=== PATIENT | female | born 1960 | race Caucasian/White ===

== ENCOUNTER 2016-11-21 06:15 | Inpatient (IN) | payer OTHER ==
[2016-11-21] VITALS (14 sets, daily range): BP systolic 150–209; BP diastolic 76–111; PULSE 62–96; RESP 16–28; O2SAT 88–98
[~2016-11-21] VITALS: Ht 170.2 cm; Wt 68.0 kg
--- NOTE | 2016-11-21 06:31 | ED.REPORT ---
HPI-Dyspnea / Wheezing Date of Service Nov 21, 2016 ED Provider: Troy Cortes MD A 56 year old female with a history of hepatitis C, TN , Type II IDDM, HTN, and heroin abuse presents to the ED via EMS from [facility] rehab facility complaining of SOB onset 0400 today. She woke up and felt like she could not breathe, describing "being able to pull breath in but receiving no O2. " Her rehab center recorded O2 sat at 88, EMS recorded it at 96 and it is recorded at 97 in the ED. Associated symptoms include recent swelling in hands, wheezing earlier this morning, and a productive cough with colorless and watery sputum. She denies any chest pain, fever, nausea, or vomiting. She last used heroin on 10/21/2016 and has been receiving treatment at rehab facility for the last two days. She reports consuming alcohol 3 weeks ago. She does smoke cigarettes. In May, she had a TN and was seen at [facility] in [place] where she experienced chest pain and headache. Nursing Notes Stated Complaint: SOB Chief Complaint: Respiratory Complaints Nursing Notes Reviewed: Yes Allergies: Coded Allergies: Penicillins (Verified Allergy, Unknown, 11/21/16) Sulfa (Sulfonamide Antibiotics) (Verified Allergy, Unknown, 11/21/16) iodine (Verified Allergy, Unknown, 11/21/16) Scheduled Clonidine (Clonidine) 0.2 Mg Tablet 0.2 MG PO BID Gabapentin (Gabapentin) 600 Mg Tablet 600 MG PO BID Insulin Glargine (Lantus U100 Insulin Vial) 100 Unit/Ml Vial 15 UNIT SUBQ MORNING Insulin Glargine (Lantus U100 Insulin Vial) 100 Unit/Ml Vial 10 UNIT SUBQ HS Losartan Potassium (Losartan Potassium) 25 Mg Tablet 25 MG PO BID Meloxicam (Meloxicam) 15 Mg Tablet 15 MG PO DAILY Propranolol HCl (Propranolol HCl) 10 Mg Tablet 10 MG PO BID General Time Seen by MD: 06:25 Chief Complaint Shortness of breath Hx Obtained From: Patient, EMS Arrived By: Ambulance Sudden in Onset?: Yes Onset Occurred: 1 - 4 hours ago Symptom Duration: Since onset Recent Healthcare: No recent doctor visit Similar Sx Previous: No Past Medical History Past Medical History Myocardial Infarction in 2015. Was hospitalized. Hepatitis C. Reports: Diabetes mellitus (Type 2, Insulin Dependent), Hypertension Past Surgical History bladder sling Reports: Cholecystectomy, Tonsillectomy Smoking History Current Every Day Smoker Social History polysubstance abuse Alcohol Use: In recovery (Last consumption was 3 weeks ago.) Drug Use: IV drugs (Heroin) Ambulatory Status Independent Review of Systems Basic Review of Systems GI: No nausea, No vomiting Constitutional: Denies: Fever Respiratory: Reports: Prod cough, clear (watery), Shortness of breath, Wheezing (This morning) Cardiovascular: Denies: Chest pain Skin: Reports Swelling (Hands) Complete sys rev & neg: except as marked. Physical Exam Initial Vital Signs Vital Signs (First) Date Time Temp Pulse Resp B/P Pulse Ox O2 Delivery O2 Flow Rate FiO2 11/21/16 06:28 36.6 67 20 167/86 96 Room Air Initial VS: Reviewed General/Constitutional: Awake, Alert, No acute distress speaking in full sentences Neck: Atraumatic, Supple, Full range of motion Respiratory / Chest: Atraumatic, Breath sounds NL, Breath sounds = bilat, No respiratory distress, No wheezing Cardiovascular: Heart rate NL, Regular rhythm, Heart sounds NL, No gallop, No murmurs, No rubs ENT: Atraumatic, Airway patent, Mucous membranes moist Abdomen: Atraumatic, No guarding, No rebound Back: Atraumatic, Full range of motion Lower Extremity / Pelvis / MS: Atraumatic, Full range of motion Skin: Atraumatic, Color NL, No rash, Warm, Dry Neurologic: Oriented X3, Speech NL, No motor deficits, No sensory deficits Head / Eyes: Atraumatic, Normocephalic, PERRL, EOMI Upper Extremity / MS: Atraumatic, Full range of motion Psychiatric: Affect NL, Mood NL Interpretation & Diagnostics Interpretation & Diagnostics: Field EKG: normal sinus rhythm with a rate of 65 Q waves in V1 lateral ST depression Lab Results Interpretation Result Diagram: 11/21/16 0645 11/21/16 0645 Test 11/21/16 06:45 11/21/16 08:57 White Blood Count 8.6th/mm3 (3.8-10.1) Red Blood Count 4.09mil/mm3 (3.90-5.20) Hemoglobin 12.5g/dL (12.0-15.6) Hematocrit 36.3% (35.0-46.0) Mean Corpuscular Volume 88.8fL (81-100) Mean Corpuscular Hemoglobin 30.6pg (27.0-35.0) Mean Corpuscular Hemoglobin Concent 34.4% (32.0-37.0) Red Cell Distribution Width 13.8% (12.3-15.4) Platelet Count 208bil/L (150-400) Neutrophils (%) (Auto) 71.9% (40-74) Lymphocytes (%) (Auto) 18.3% (14-46) Monocytes (%) (Auto) 6.2% (4-12) Eosinophils (%) (Auto) 3.2% (0-5) Basophils (%) (Auto) 0.2% (0-3) D-Dimer 0.8mg/L (<0.50) Sodium Level 137mEq/L (134-144) Potassium Level 4.4mEq/L (3.5-5.2) Chloride Level 101mEq/L (97-108) Carbon Dioxide Level 24mmol/L (18-29) Blood Urea Nitrogen 10mg/dL (6-24) Creatinine 0.56mg/dL (0.57-1.00) Estimat Glomerular Filtration Rate 162mL/min (>59) Glucose Level 145mg/dL (60-99) Calcium Level 8.6mg/dL (8.5-10.1) Magnesium Level 1.9mg/dL (1.6-2.6) Total Bilirubin 0.4mg/dL (0.0-1.2) Aspartate Amino Transf (AST/SGOT) 16U/L (0-50) Alanine Aminotransferase (ALT/SGPT) 14U/L (0-32) Alkaline Phosphatase 74U/L (25-150) Total Protein 7.0g/dL (6.4-8.4) Albumin 3.9g/dL (3.4-5.0) Hold Urine Received (Received) ECG Interpretation ECG Interpretation: SR at 65 with QS in V1 and lateral ST depression. Time: 06:38 Interpreted by: ED physician ECG Interpretation: similar lateral ST segment changes ST segment change less pronounced. Time: 06:40 Interpreted by: ED physician X-Ray Chest Interpretation Chest Xray Interpretation: IMPRESSION: Right greater than left interstitial prominence but seen over the mid and lower lungs, and it is unclear whether this would represent an acute process such as viral pneumonitis, or potentially a chronic fibrotic change in the lung parenchyma. Dictated by: Parvez Recinos M.D. on 11/21/2016 at 8:24 Approved by: Parvez Recinos M.D. on 11/21/2016 at 8:25 Interpretation / Wet Read by: Interpret - Radiologist Re-Eval/Medical Decision Med Decision/Clinical Course 56 year-old with history of polysubstance abuse presently in an involuntary treatment program in [place]. Presents with acute shortness of breath this morning. There was a report from the facility of an 88% room air saturation, subsequent oxygen saturation measurements on room air have all been normal. Patient reported wheezing and did not have chest pain fever or cough. There is a history of a prior non-ST elevation TN according to records obtained from [facility] in [facility]. Her EKG has some lateral ST depression, it is somewhat more prominent on the field tracing however this may be lead placement. Initial troponin is indeterminate. She is not presently symptomatic for chest pain or dyspnea. Her d-dimer is minimally elevated at 0.8. There is a history of injection drug use multiple attempts at IV access including ED staff, position and IV therapy have been unsuccessful at peripheral IV access. She was given oral aspirin, she felt overall to be low risk for pulmonary embolism and the d-dimer is not impressive. At this point it is felt that the benefit of a central line does not justify the risk. She will be admitted to the hospitalist service for telemetry and serial cardiac enzymes. She was given 1 DuoNeb. Emergency department however I did not note wheezing. Source of Hx: Old records Re-Evaluation/Progress #1: Time of Eval: 07:59 Patient Status: Condition improved Re-Evaluation/Progress Note: Pt rechecked, who is resting comfortably. She is informed of treatment plan. Re-Evaluation/Progress #2: Time of Eval: 10:15 Re-Evaluation/Progress Note: Rechecked patient and explained the need for her to be admitted to the hospital. Patient agrees with the plan. Re-Evaluation/Progress #3: Time of Eval: 10:51 Re-Evaluation/Progress Note: Pt rechecked and further history is obtained. Patient has urticaric rash that has been present intermittently over the last few days. Consultation : Referral / Consult Name: Karen Caldwell MD Consulted With: Hospitalist Call Returned at: 10:01 Swim Instructor: Agrees with eval, Agrees with plan, Accepts admit Note: Spoke with Dr. Caldwell, hospitalist, regarding pt's case. Dr. Caldwell agrees with the evaluation and agrees to admit the pt. Counseled Regarding: Diagnosis, Lab results, Need for admission Discharge & Departure Impression: Primary Impression: Dyspnea Dyspnea type: shortness of breath Qualified Code: R06.02 - Shortness of breath Additional Impression: Elevated troponin Disposition: ADMITTED TO HOSPITAL Discharge Condition All VS Reviewed: Yes Condition: Stable Scribe Attestation Portions of this note were transcribed by Omar Redman and Dianne Lebron. I, Dr. Cortes personally performed the history, physical exam and medical decision- making; I reviewed and confirmed the accuracy of the information in the transcribed note. Signed by: Collette John, 2016 and Troy Waller MD Nov 21, 2016 06:31 Omar Redman Nov 21, 2016 06:38 DIANNE LEBRON Nov 21, 2016 08:11
[2016-11-21 07:22] LABS: BASOPHILS % (AUTO) 0.2 % (0-3); EOSINOPHILS % (AUTO) 3.2 % (0-5); MONOCYTES % (AUTO) 6.2 % (4-12); Mean Corpuscular Hemoglobin 30.6 pg (27.0-35.0); Mean Corpuscular Volume 88.8 fL (81-100); NEUTROPHILS % (AUTO) 71.9 % (40-74); Platelet Count 208 bil/L (150-400)
[2016-11-21 07:37] LABS: TROPONIN T 0.015 ug/L (0.0-0.011)
[2016-11-21 07:48] LABS: Magnesium 1.9 mg/dL (1.6-2.6)
[2016-11-21] MEDS ORDERED: Albuterol-Ipratropium 3 mL Inhalation Solution NEB ONE (07:50)
--- NOTE | 2016-11-21 08:25 | DRSVH ---
PROCEDURE: X-RAY CHEST, TWO VIEWS ([id number]) INDICATIONS: SOB TECHNIQUE: 2 views of the chest were acquired. COMPARISON: None. FINDINGS: Surgical changes and devices: None. Lungs and pleura: No pleural effusions or pneumothorax. Lungs are abnormal with a interstitial prom inence bilaterally, slightly greater on the right than the left. Mediastinum: Mediastinal contours are normal. Heart size is normal. Bones and chest wall: No suspicious bony abnormalities. Soft tissues appear unremarkable. IMPRESSION: Right greater than left interstitial prominence but seen over the mid and lower lungs, an d it is unclear whether this would represent an acute process such as viral pneumonitis, or potential ly a chronic fibrotic change in the lung parenchyma. Dictated by: Parvez Recinos M.D. on 11/21/2016 at 8:24 Approved by: Parvez Recinos M.D. on 11/21/2016 at 8:25
[2016-11-21] MEDS ORDERED: PROP10TA8 PO ×2 (08:28→08:34)
[2016-11-21] MEDS ORDERED: CLON0.2T PO (08:28)
[2016-11-21] MEDS ORDERED: GABA600T2 PO (08:28)
[2016-11-21] MEDS ORDERED: LOSA25TA21 PO (08:29)
[2016-11-21] MEDS ORDERED: MELO-253 PO (08:30)
[2016-11-21] MEDS ORDERED: INSU100V7 SUBQ ×2 (08:32)
[2016-11-21] MEDS ORDERED: Alum-Mag Hydrox-Simeth 30 mL Suspension PO PRN (10:40)
[2016-11-21] MEDS ORDERED: diphenhydrAMINE 25 mg Capsule PO ONE (10:55)
[2016-11-21] MEDS ORDERED: diphenhydrAMINE 50 mg Capsule PO ONE (10:55)
--- NOTE | 2016-11-21 12:00 | NUR ---
Admission Patient arrived to unit via gurney. Patient reports she has been at [facility] in [place] for "Rehab" of heroin use (patient reports no recent use). Per ER nurse, nursing unable to start an IV line. IV therapy also unsuccessful with ultra sound. Patient irritable and demanding at times. Refused nursing assessment. Refused to have IV therapy attempt to start a peripheral line or PICC. "I am tired and want to be left alone". Patient reporting she was sleeping this morning and woke up "unable to breath". Per report, patient O2 sats by [facility] staff were in 88%. EMT reports O2 sats 96% on room air. Chest xray and labs drawn. Addendum: 11/21/16 at 1831 by BRAEDEN ROSARIO RN Patient very upset that medications have been changed. Lantus to Lispro, propranolol to metoprolol, and no clonipin or losartan. Patient threatening to leave AMA unless she gets her meds and can smoke. Hospitalist contacted.
[2016-11-21 13:05] LABS: Creatine Kinase 70 U/L (21-215)
--- NOTE | 2016-11-21 13:13 | PCM.HPMED ---
Subjective Date of Service Nov 21, 2016 Primary Provider: Admitting Physician: Karen Caldwell MD Primary Care Physician: Other,Physician Attending Physician: Karen Caldwell MD Chief Complaint: Chocking sensation, difficulty breathing History of Present Illness: 56 year female with hypertension, diabetes, hep C not treated, active smoker, chronic heroin abuse currently on inpatient rehabilitation day p/w chocking sensation this AM. pt stated that she woke up this morning, couldn't breath out, reportedly SpO2 was 88%, possible wheezing. pt denied having chest pain, palpitation, dizziness , nausea, vomiting, blurry vision, symptoms started around 4am, arrived to ED in 2hrs. pt was not on any meds given in the rehab, staying for behavioral tx. denied drinking etoh, heroin recently. pt stated that she had heart attack in the setting of methamphetamine smoking in stayed in [facility], [facility], but AMAed, lost FU. pt does have PCP in [place], [place] who Rxed her most recent meds, diabetes is controlled [id number] most recently.pt is currently homeless, plan to arrange placement after 60days rehab course. In ED, VS 167/86, 67, 20, afebrile, 96%, EKG showed STD in lateral leads, CXR unremarkable. Given drug abuse, iv were unable to set up. pt received one neb tx , aspirin. During the encounter, pt still has very mild sensation of chocking, mildly anxious, denied chest pain, ROS: no fever, chills, n,v,c,d, sick contacts, travel, urinary complaints, Review of Systems: Pertinent positives as noted in history of present illness. All other systems were reviewed and are negative Allergies Coded Allergies: Penicillins (Verified Allergy, Unknown, 11/21/16) Sulfa (Sulfonamide Antibiotics) (Verified Allergy, Unknown, 11/21/16) iodine (Verified Allergy, Unknown, 11/21/16) Home Medications Scheduled Clonidine (Clonidine) 0.2 Mg Tablet 0.2 MG PO BID Gabapentin (Gabapentin) 600 Mg Tablet 600 MG PO BID Insulin Glargine (Lantus U100 Insulin Vial) 100 Unit/Ml Vial 15 UNIT SUBQ MORNING Insulin Glargine (Lantus U100 Insulin Vial) 100 Unit/Ml Vial 10 UNIT SUBQ HS Losartan Potassium (Losartan Potassium) 25 Mg Tablet 25 MG PO BID Meloxicam (Meloxicam) 15 Mg Tablet 15 MG PO DAILY Propranolol HCl (Propranolol HCl) 10 Mg Tablet 10 MG PO BID PMH as described in HPI Surgical History D&C, tonsilectomy, cholcystectomy, 2 C-sec, bladder sling Family History father has HTN, DM Social History Hx Alcohol Use: No Hx Substance Use: Yes (last herion ) Smoking Status: Current Every Day Smoker Exam Vital Signs Vital Sign - Last Date Time Temp Pulse Resp B/P Pulse Ox O2 Delivery O2 Flow Rate FiO2 11/21/16 11:42 63 11/21/16 11:09 36.8 18 168/90 97 Room Air Exam milddle aged female, pleasant, mild diaphoresis NAD, comfortable, MMM RRR, nl s1 s2 no mrg CTAB no w,c S,ND,NT,BS+ warm, no edema Lab and Diagnostics Result Diagram: 11/21/1664411/21/16644 Assessment & Plan 56 year female with hypertension, diabetes, hep C not treated, active smoker, chronic hearing abuse currently on inpatient rehabilitation day p/w chocking sensation this AM. acute, active episode of hypoxia, SOB, chocking sensation, anxiety, POA, ddx: NSTEMI based EKG chg(unclear onset), trop+, risks-smoking vs PE based on d-dimer+, hx -will trend trop, EKG, sx, if more suggestive NSTEMI, empirically given asa, will give BB/statin -TTE today -given persistent mild discomfort, anxiety, diaphoresis depite no hypoxia, will empirically try AC for PE, LMWH 60mg bid -dvt study -ordered VQ scan, however, this study also probably needs IV access as well, troponemia, POA, likely demand ischemia vs NSTEMI, will trends for now chronic, stable heroin abuse, monitor for WD, denied current use hep C, not active active smoker, start nicotine patch DM, lispro SS HTN, will resume home meds once med recs done. pt will likely stay greater than 2days as an inpatient status diet: DASH/DM dvt ppx: systemic AC Full Code Time spent 65min Karen Caldwell MD Nov 21, 2016 11:54
[2016-11-21] MEDS ORDERED: Sodium Chloride LOK Flush 10 mL Syringe IVFLUSH PRN ×2 (13:25)
[2016-11-21] MEDS ORDERED: Glucose 40% Oral Gel 15 Gm Tube PO PRN (13:25)
[2016-11-21] MEDS ORDERED: Insulin Human REGular 300 Unit/3 mL Inj SUBQ SCH (14:30)
--- NOTE | 2016-11-21 15:50 | DRSVH ---
[facility] [address] [place] [address] Echocardiogram Report Name: JAMMIE MANZANO Study Date: 11/21/2016 Height: 67 in Hospital Exam Location: [facility] Weight: 150 lb Gender: Female BSA: 1.8 m2 : 1960 Age: 56 yrs BP: 168/90 mmHg Reason For Study: NSTEMI Ordering Physician: Performed By: Moises Osuna Interpretation Summary Left ventricular systolic function is mildly reduced with the ejection fraction visually estimated to be 45-50% with borderline global hypokinesis and thinning and akinesis of the proximal half of the posterior and inferoposterior myrick. There are no other obvious focal wall motion abnormalities. A markedly increased E/A ratio is consistent with probable significantly elevated filling pressures. The right ventricle is normal in size and function. There is moderate pulmonary hypertension with the right ventricular systolic pressure estimated at 48 mmHg assuming a right atrial pressure of 8 mm Hg. The left atrium is severely dilated while right atrial size is normal. There is moderate mitral regurgitation and mild to moderate tricuspid regurgitation. Procedure: A two-dimensional transthoracic echocardiogram with color flow and Doppler was performed. The study quality was technically good. There is no prior echocardiogram noted for this patient. The patient was in normal sinus rhythm during the exam. Left Ventricle: The left ventricle is normal in size. There is normal left ventricular wall thickness. Left ventricular systolic function is mildly reduced. The ejection fraction is estimated to be 45-50%. There is borderline global hypokinesis of the left ventricle. There is thinning and akinesis of the proximal half of the posterior and inferoposterior myrick. There are no other obvious focal wall motion abnormalities. A markedly increased E/A ratio is consistent with probable significantly elevated filling pressures. Right Ventricle: The right ventricle is normal in size and function. Atria: The left atrium is severely dilated. Right atrial size is normal. The interatrial septum is intact with no evidence for an atrial septal defect. Mitral Valve: There is mild mitral annular calcification. There is moderate mitral regurgitation. Aortic Valve: The aortic valve is trileaflet. The aortic valve is slightly calcified. The aortic valve opens well. No aortic regurgitation is present. Tricuspid Valve: The tricuspid valve is normal in structure and function. There is mild to moderate tricuspid regurgitation. There is moderate pulmonary hypertension. The right ventricular systolic pressure is estimated at 48 mmHg assuming a right atrial pressure of 8 mm Hg. Pulmonic Valve: The pulmonic valve is not well visualized. There is no pulmonic valvular regurgitation. Great Vessels: The aortic root is normal size. The ascending aorta could not be visualized. The pulmonary artery is normal size. The IVC is dilated (diameter is greater than 2.1 cm) yet it collapses greater than 50% with a sniff. This suggests a right atrial pressure of 8 mm Hg. Pericardium/ Pleura There is no pericardial effusion. There is no pleural effusion. MMode/2D Measurements & Calculations LVIDd: 5.3 cm LA dimension: 4.4 cm RA long axis: 5.2 cm Ao root diam LVIDs: 3.6 cm FS: 32.1 % LA A2 area: 32.5 cm RA area: 18.2 cm Aortic Jxn: 2.4 cm EPSS: 0.78 cm LA A4 area: 25.8 cm RA vol: 54.1 ml Ao Arch Diam (Prox IVSd: 1.1 cm LA length (vol) RA : 30.2 ml/m2 Trans): 2.4 cm LVPWd: 0.90 cm LA vol: 111.0 ml LA vol index IVC diam: 2.3 cm EDV(MOD-sp2) LV mcfadden. diameter/BSA LV sys. diameter/BSA RVD1 (basal) : 110.6 ml (cm/m^2): 3.0 (cm/m^2): 2.0 : 4.1 cm RVD2 (mid) : 3.5 cm Doppler Measurements & Calculations Ao V2 max MV E max maurice MV E/A: 3.8 TR max maurice : 120.8 cm/sec : 105.0 cm/sec Med Peak E' Maurice : 315.3 cm/sec Ao max P.8 mmHg MV A max maurice TR max PG Ao mean P.6 mmHg : 27.4 cm/sec E/E' med: 34.3 : 39.8 mmHg Pulm A Revs Dur PA V2 max MR ERO: 0.25 cm2 : 82.2 cm/sec MV A dur: 0.10 sec PA mean PG PA Accel Time : 0.10 sec MV dec time: 0.14 sec Ao V2 mean MR flow rate PA V2 mean : 91.1 cm/sec : 57.9 cm/sec Ao V2 VTI: 27.0 cm: 123.0 cm3/sec PA pr(Accel) MR PISA radius : 31.6 mmHg Pulm A Revs Dur - MV A Dur: 0.01 msec Reading Physician:03:49 PM
--- NOTE | 2016-11-21 16:09 | NUR ---
took over care at 4pm
[2016-11-21] MEDS ORDERED: LORazepam 2 mg Tablet PO ONE (17:05)
[2016-11-21] MEDS: Insulin LISPRO 300 Unit/3 mL Inj SUBQ SCH ×2 (17:30→22:00)
[2016-11-21] MEDS: Albuterol-Ipratropium 3 mL Inhalation Solution NEB PRN (17:35)
--- NOTE | 2016-11-21 18:31 | NUR ---
Patient reporting sob and chest pressure. O2 sats 84-86% on room air, increased to 91% 2 ltr oxymask. BP 208/110. Patient reporting headache. Tele SR 70. Neb treatment ordered. EKG ordered, ST changes noted, hospitalist contacted. Nitro SL given x 2 without relief-patient went to PICC suite. IV therapy able to get IV start. Hospitalist ordered VQ scan and Heparin drip. Addendum: 11/21/16 at 1937 by BRAEDEN ROSARIO RN Patient back from PICC suite. "I want my medications now, I need my insulin and my blood pressure medication-I haven't had them all day, what about my gabapentin and I really need my clonidine. Patient agitated, swearing, angry. Unable to get PE study as patient is allergic to iodine and prednisone.
[2016-11-21] MEDS ORDERED: Heparin 5,000 Unit/mL Inj IVPUSH ONE (18:40)
[2016-11-21] MEDS ORDERED: Heparin 25K Unit/500mL 0.45 NS 25,000 UNIT in IV Premix 1 EACH IV SCH (18:40)
--- NOTE | 2016-11-21 19:08 | NUR ---
PICC Unable to place picc line as pt's venous access volumn to small to accommodate the line.
[2016-11-21] MEDS ORDERED: Nitroglycerin 2% 1 Gm Ointment TOPICAL SCH ×2 (19:30→20:55)
[2016-11-21] MEDS: LORazepam 2 mg Tablet PO PRN (20:16)
[2016-11-21] MEDS ORDERED: cloNIDine 0.1 mg Tablet PO ONE (20:25)
[2016-11-21] MEDS: Insulin GLARgine 100 Unit/mL Syringe SUBQ SCH (20:37)
[2016-11-21] MEDS: 0.9% Sodium Chloride 1,000 ML IV SCH (22:10)
[2016-11-21 22:21] LABS: COLOR,URINE STRAW (YELLOW)
[2016-11-21 22:22] LABS: APPEARANCE,URINE CLEAR (CLEAR,HAZY); OCCULT BLOOD,URINE NEGATIVE (NEGATIVE); PH,URINE 6.5 (5.0-8.0); UROBILINOGEN,URINE NORMAL (NORMAL)
[2016-11-22] VITALS (9 sets, daily range): BP systolic 117–165; BP diastolic 68–88; PULSE 60–80; RESP 19–20; O2SAT 94–99
--- NOTE | 2016-11-22 00:21 | NUR ---
Behavior/ uncooperative Patient out in hallway yelling out cussing. "what did you go on a [facility] coffee break!" "this [facility] sucks, it takes you 6 hours to get me my medications." redirected patient back to her room. informed her that I was doing my best to get her, her clonopin. gave patient 2mg ativan PO. patient upset that ativan was pill form and stated "what the fuck is my IV for come on man!" educated patient that her IV is needed for a heparin gtt because her EKG was showing changes that were concerning and her troponins were elevated concerning for an OR. reinforced the importance of starting the heparin gtt to the patient and the need for PTT lab draws to assess the heparins effectiveness. Patient states "well you can send those fucking lab people in here I am just going to send them away." I stated to her well then that would mean that you are refusing care and I will have to let the doctor know because I can not start your heparin gtt until I have that lab result. patient states "fine" Notified MD of patient refusal and of BP 202/111. MD states document patient refusal. new order for nitro paste patch and amlodipine. MD increased clonopin to 0.3mg. Patient yelling "this is fucking bullshit!" patient was heard throughout the unit cussing in her room and throwing things at the wall. Charge nurse into help with patient. patient was given Clonopin 0.3mg and Tylenol per her request. Patient states "Don't you know I have Hep C! this could really screw up my liver." educated patient that her liver enzymes at this time look ok and she has the right to refuse any medication. patient took the tylenol for her headache at this time. Lab up to draw PTT. MD order Ok to draw lab from foot per patient request. PTT draw and pending. orders placed for Q6 hour PTT. patient is aware that she will need to have labs drawn every 6 hours for the heparin gtt. Patient requested that she get some sleep with limited distractions. 02 dropped to 90% on RA. patient placed on 2L while sleeping 02 maintained in the mid 90%. Patient BP improved to 180's systolic after 1inch Nitro paste. Patient was given amlodipine for better control. will continue to monitor.
--- NOTE | 2016-11-22 00:41 | NUR ---
CT Patient refused CT at shift change until she gets her medications. CT nurse states unable to complete CT due to patient being allergic to contrast. notified. new order to start contrast allergy protocol per hospital. patient states no allergy to prednisone or steriods to her knowledge. Kurtz start Prednisone tonight when patient wakes up.
[2016-11-22] MEDS ORDERED: predniSONE 20 mg Tablet PO SCH (03:00)
[2016-11-22 03:12] LABS: BASOPHILS % (AUTO) 0.2 % (0-3); Mean Corpuscular Hemoglobin 31.2 pg (27.0-35.0); Mean Corpuscular Volume 90.1 fL (81-100); NEUTROPHILS % (AUTO) 69.2 % (40-74); Platelet Count 201 bil/L (150-400)
[2016-11-22] MEDS: LORazepam 2 mg Tablet PO PRN ×3 (03:24→20:00)
[2016-11-22 03:43] LABS: Magnesium 1.7 mg/dL (1.6-2.6); Phosphorus 2.7 mg/dL (2.5-4.9)
[2016-11-22] MEDS: Heparin Protocol Boluses IVPUSH PRN ×3 (04:17→16:00)
--- NOTE | 2016-11-22 06:19 | NUR ---
Shift Note Patient was placed on NPO status w/no caffeine and no beta blockers @ 0000 for possible stress test today. Pt was educated about diet limitations and reasoning behind them. Pt agreed to stay NPO initially but throughout the shift demanded fluids and food. At one point patient was found in the nourishment room getting juice after the door had been closed with the intention of discouraging this behavior. Pt was very agitated and demanded Meds on numerous occasions that were not scheduled. The patient was verbally abusive towards staff and was screaming obscenities in the culp. Pt is in the [facility] housing and wishes to return there but was told she had to follow through with treatment here in order to be re accepted [facility] the [facility]. Patient threatened leaving AMA on a number of occasions. But after discussion of her options she would try to settle down and cooperate.
--- NOTE | 2016-11-22 06:25 | NUR ---
NPO/Non-compliance Patient made aware that she is NPO after Midnight for possible stress test in AM. patient agrees to this and is aware she can have no chocolate or caffeine. Patient awoke at 0300 c/o increased thirst and anxiety patient upset that she could not have juice. let her know that she has the right to refuse NPO status but she will have to postpone her test. patient is aware that the test is important to assess her heart function. Patient agreed to take small sips of water with her ativan this AM. 2 hours later patient awoke upset that she can not have apple juice. reinforced to patient MD orders allowed her to have small sip. 15 minutes later patient was found in nutrition room helping herself to beverages and snacks. Patient is aware that her behavior will result in her test being postponed
--- NOTE | 2016-11-22 07:39 | NUR ---
NPO non compliant pt states that she is diabetic and thirsty. This RN asked that she wait for the doctors order to eat or drink. pt went ahead and drank some water from the sink. pt also removed her own IV and had the Heparin pumping on the floor. IV re-hooked up.
[2016-11-22] MEDS: 0.9% Sodium Chloride 1,000 ML IV SCH ×2 (08:10→18:03)
[2016-11-22] MEDS: Insulin LISPRO 300 Unit/3 mL Inj SUBQ SCH ×4 (08:13→20:03)
[2016-11-22] MEDS ORDERED: diphenhydrAMINE 50 mg Capsule PO ONE (08:48)
--- NOTE | 2016-11-22 09:18 | DRSVH ---
PROCEDURE: US VENOUS LEG DUPLEX BILATERAL INDICATIONS: rule out dvt TECHNIQUE: Real-time imaging, as well as color and pulse Doppler interrogation, were performed of the deep veins of both legs from the inguinal ligament to the popliteal fossa. COMPARISON: None. FINDINGS: The deep veins are normally compressible, and free of intraluminal thrombus. Color and pu lse Doppler demonstrate normal phasic intravascular flow. There is normal augmentation response to d istal compression maneuver. IMPRESSION: No evidence for deep venous thrombosis is found in the left lower extremity with this duplex venous D oppler study. No evidence for deep venous thrombosis is found in the right lower extremity with this duplex venous Doppler study. Dictated by: Sam Sen M.D. on 11/22/2016 at 9:15 Approved by: Sam Sen M.D. on 11/22/2016 at 9:16
--- NOTE | 2016-11-22 09:44 | NUR ---
VQ scan vs stress test these tests need to be seperated by 48hrs Dr. Caldwell prefers to have VQ study done first.
--- NOTE | 2016-11-22 13:11 | NUR ---
off floor pt of floor for VQ study. transported via W/C by hospital staff.
--- NOTE | 2016-11-22 14:33 | NUR ---
nicotine patch patch placed on the back of left shoulder.
--- NOTE | 2016-11-22 14:48 | DRSVH ---
PROCEDURE: NM LUNG VQ RADIOPHARMACEUTICAL: 27.0 mCi Tc-99m DTPA aerosol by inhalation and 5.4 mCi Tc-99m MAA intravenously. INDICATIONS: DYSPNEA, PULMONARY EMBOLUS. TECHNIQUE: Ventilation images were obtained first with Tc-99m DTPA aerosol. Subsequently, perfusion images were acquired after intravenous injection of Tc-99m MAA. Anterior, posterior, FARMER, DOMINICAN, RPO, LPO, left and right lateral views were obtained. COMPARISON: [facility], CR, XR CHEST 2VW, 11/21/2016, 7:37. FINDINGS: Ventilation and perfusion images in standard projections were obtained. There are no matche d or mismatched defects. This is considered a normal VQ scan. IMPRESSION: This is considered very low probability for embolus VQ scan. Dictated by: Sam Sen M.D. on 11/22/2016 at 14:42 Approved by: Sam Sen M.D. on 11/22/2016 at 14:47
--- NOTE | 2016-11-22 15:05 | NUR ---
Social Work-assessment: Data:EMR Reviewed. Pt is a 56 y/o female who was admitted on 11/21/16 for dyspnea per H&P. Pt's insurance is [employer] and PCP is Other. EMR Reviewed. SW met with pt at bedside to discuss discharge planning, SW role explained. pt has been at [facility]) inpt treatment for a few days. SW confirms with pt that she plans on returning there at discharge. SW discussed DPOA/ advanced directive paperwork and pt declining stating she is not interested in doing this. Pt has been up independent in her room. SW placed a call to [facility] and spoke with Kathie Noonan who confirms they can accept pt back at discharge and will provide transport. Kathie state that SW will just need to call [phone] and inform them of discharge and they will pick pt up. SW provided phone number on white board in room. SW will continue to follow. Assessment:Pt to return to [facility]. Plan:Pt to discharge back to [facility]( [facility]) inpt treatment when medically stable. SW will just need to call [facility] at [phone] and they will come and pick pt up at discharge. SW will continue to follow. ANGELICA Cole
--- NOTE | 2016-11-22 16:03 | NUR ---
removing own IV pt is removing her own IV despite multiple reminders from this RN. pt wants to shower and doesn't care to wait for assistance.
[2016-11-22] MEDS: Insulin GLARgine 100 Unit/mL Syringe SUBQ SCH (20:03)
[2016-11-23] VITALS (8 sets, daily range): BP systolic 123–172; BP diastolic 71–91; PULSE 61–90; RESP 18–20; O2SAT 93–96
[2016-11-23] MEDS: LORazepam 2 mg Tablet PO PRN ×3 (00:12→19:58)
--- NOTE | 2016-11-23 00:59 | NUR ---
Heparin Gtt Refusal Patient refused lab draw for heparin gtt. Patient aware of the importance and stated "maybe in the morning". Patient became anxious and yelling stating "I have no more fucking blood ok?" Patient aware of the consequences of stopping the heparin and the importance of monitoring the PTT levels. MD notified. new order to stop heparin gtt and start lovenox shot. Patient made aware and agreed to lovenox. notified pharmacy regarding lovenox dosing by pharmacist. Pharmacist states ok to give. Lovenox shot administered. Patient awoke at midnight anxious after heparin shot medicated with 2mg ativan per request.
[2016-11-23] MEDS: 0.9% Sodium Chloride 1,000 ML IV SCH ×2 (03:12→13:55)
[2016-11-23 06:12] LABS: Magnesium 1.4 mg/dL (1.6-2.6)
[2016-11-23 06:16] LABS: BASOPHILS % (AUTO) 0.3 % (0-3); MONOCYTES % (AUTO) 5.3 % (4-12); Mean Corpuscular Hemoglobin 30.6 pg (27.0-35.0); Mean Corpuscular Volume 88.2 fL (81-100); NEUTROPHILS % (AUTO) 82.8 % (40-74); Platelet Count 171 bil/L (150-400)
--- NOTE | 2016-11-23 07:21 | NUR ---
Emesis Patient vomited x2 this shift after tylenol and after ativan. Notified MD new order for zofran IV. 20 minutes later patient denied nausea and was sleeping. will continue to monitor and pass on in shift report. Patient also had one episode of diarrhea this shift.
[2016-11-23] MEDS: Ondansetron 2 mg/mL 2 mL Inj IVPUSH PRN ×2 (07:47→14:27)
[2016-11-23] MEDS: Insulin LISPRO 300 Unit/3 mL Inj SUBQ SCH ×4 (08:24→22:00)
[2016-11-23] MEDS ORDERED: LORazepam 2 mg Tablet PO ONE (10:11)
--- NOTE | 2016-11-23 14:53 | PCM.PNMED ---
Subjective Date of Service Nov 23, 2016 Subjective complains of generalized malaise, new onset nausea, vomiting, and diarrhea. denies any CP or SOB today Exam Vital Signs Vital Sign - Last Date Time Temp Pulse Resp B/P Pulse Ox O2 Delivery O2 Flow Rate FiO2 11/23/16 13:35 37.0 88 19 158/78 95 Room Air 11/22/16 04:56 2.00 Intake and Output 11/22/16 11/22/16 11/23/16 Cumulative From/Thru 15:00 23:00 07:00 11/21/16 06:28 - 11/23/16 06:48 Intake Total 1465 ml 1136 ml 3987 ml Output Total 2000 ml 1850 ml 9050 ml Balance -535 ml -714 ml -5063 ml Intake Oral 1200 ml 1136 ml 3645 ml IV Total 265 ml 342 ml Output Urine Total 2000 ml 1850 ml 9050 ml # Bowel Movements 1 1 General: Alert, Oriented X3, Cooperative, No Acute Distress Head: Normal Eyes: Scleral Anicteric Mouth: Mucous Membr Moist/[place] Neck: Supple Chest & Lungs: Chest Wall Normal, Clear to auscultation & percussion Cardiovascular: Regular Rate/Rhythm Pulses: NL carotid, radial, femoral, DP, PT Abdomen: Non-tender, Non-distended, Normoactive bowel tones, Soft Extremities: No cyanosis/clubbing/edma bilat Neurological: Grossly Neurologically Intact, Normal Speech IVs and Medications Medications Reviewed: Medications were reviewed in detail Lab and Diagnostics Result Diagram: 11/23/1651911/23/16519 X-Rays, CTs and MRIs Date of Service: 11/21/16621 PROCEDURE: X-RAY CHEST, TWO VIEWS ([id number]) IMPRESSION: Right greater than left interstitial prominence but seen over the mid and lower lungs, and it is unclear whether this would represent an acute process such as viral pneumonitis, or potentially a chronic fibrotic change in the lung parenchyma. Dictated by: Parvez Recinos M.D. on 11/21/2016 at 8:24 Approved by: Parvez Recinos M.D. on 11/21/2016 at 8:25 Date of Service: 11/21/16 1317 PROCEDURE: US VENOUS LEG DUPLEX BILATERAL IMPRESSION: No evidence for deep venous thrombosis is found in the left lower extremity with this duplex venous Doppler study. No evidence for deep venous thrombosis is found in the right lower extremity with this duplex venous Doppler study. Dictated by: Sam Sen M.D. on 11/22/2016 at 9:15 Approved by: Sam Sen M.D. on 11/22/2016 at 9:16 Additional Diagnostics Date of Service: 11/22/16 0857 PROCEDURE: NM LUNG VQ IMPRESSION: This is considered very low probability for embolus VQ scan. Dictated by: Sam Sen M.D. on 11/22/2016 at 14:42 Approved by: Sam Sen M.D. on 11/22/2016 at 14:47 Assessment & Plan 56 year female with hypertension, diabetes, possible CAD, hep C not treated, active smoker, chronic heroin abuse presents 2 days in to inpatient rehabilitation with complaint of acute chocking sensation and SOB. # Acute shortness of breath, present on admission. Improving. - PE unlikely with low probability VQ scan on 11/22 - ? if presenting symptoms partially cardiac in origin given mildly reduced EF and wall motion abnormality noted on Echo on 11/21 - plan for stress test in am # Acute on chronic anxiety. - ? if presenting symptoms partially due to anxiety - c/w supportive care # History of opiate (heroin) abuse - denies recent use - c/w supportive care # History of Hep C, not active - further f/u as outpatient # History of tobacco use - nicotine patch # History of diabetes mellitus - lispro SS - f/u HgA1C # History hypertension. poorly controlled - c/w metoprolol started during this hospital - c/w home dose Clonidine - resume home dose Losartan and titrate # Acute hypomagnesemia. - replete and f/u # History of alcohol abuse - denies recent use - f/u and treat with CIWA protocol if needed # Acute nausea, vomiting, diarrhea - ? etiology - ? if withdrawal vs viral gastroenteritis vs other. - check stool PCR - c/w supportive care Dispo: 2-3 days VTE Prophylaxis: Sub-Q Enoxaparin VTE Mechanical Devices: Venous Foot Pump Time spent 35 min Hemant Rothman Nov 23, 2016 14:53
[2016-11-23] MEDS ORDERED: Magnesium Sulf 2 Gm/50mL Water 2 GM in IV Premix 1 EACH IV ONE (14:55)
--- NOTE | 2016-11-23 15:09 | NUR ---
cardiac stress test pt is scheduled for a cardiac stress test on 11/24/16 @ 0745 NPO at midnight, no caffeine, no cardiac medications, no nitro
[2016-11-23] MEDS: Insulin GLARgine 100 Unit/mL Syringe SUBQ SCH (21:00)
[2016-11-24] VITALS (8 sets, daily range): BP systolic 97–136; BP diastolic 60–79; PULSE 61–73; RESP 16–20; O2SAT 95–99
[2016-11-24] MEDS: Ketorolac 15 mg/mL Inj IVPUSH PRN (02:06)
--- NOTE | 2016-11-24 03:28 | NUR ---
Activity/Anxiety Patient states that she is highly anxious and needs her Ativan jasmeet during initial assessment. Patient is informed that she is to be NPO after midnight. Ativan administered. Patient found in bathroom by SUPERCALENDER OPERATOR drinking water via her hands. Patient found two hours later standing up wanting to disconnect IV lines. Patient gently put back to bed. IV restarted. Toradol administered for back pain. Patient resting. VSS. Call light within reach. Care continues.
[2016-11-24] MEDS: LORazepam 2 mg Tablet PO PRN ×3 (04:40→20:09)
[2016-11-24 06:37] LABS: Mean Corpuscular Hemoglobin 30.8 pg (27.0-35.0); Mean Corpuscular Volume 90.3 fL (81-100)
[2016-11-24] MEDS: Insulin LISPRO 300 Unit/3 mL Inj SUBQ SCH ×4 (08:00→20:26)
[2016-11-24] MEDS: Albuterol-Ipratropium 3 mL Inhalation Solution NEB PRN (08:01)
--- NOTE | 2016-11-24 16:01 | PCM.PNMED ---
Subjective Date of Service Nov 24, 2016 Subjective denies any CP or SOB today. complains of severe anxiety and panic attack. Exam Vital Signs Vital Sign - Last Date Time Temp Pulse Resp B/P Pulse Ox O2 Delivery O2 Flow Rate FiO2 11/24/16 14:21 36.9 64 18 117/71 95 Room Air 11/22/16 04:56 2.00 Intake and Output 11/23/16 11/23/16 11/24/16 Cumulative From/Thru 15:00 23:00 07:00 11/21/16 06:28 - 11/24/16 06:33 Intake Total 1000 ml 1390 ml 6377 ml Output Total 701 ml 1675 ml 89815 ml Balance 299 ml -285 ml -5049 ml Intake Oral 1000 ml 400 ml 5045 ml IV Total 990 ml 1332 ml Output Urine Total 700 ml 1675 ml 66986 ml Stool Total 1 ml 1 ml # Bowel Movements 1 2 Exam General: Alert, Oriented X3, Cooperative, No Acute Distress Head: Normal Eyes: Scleral Anicteric Mouth: Mucous Membr Moist/[place] Neck: Supple Chest & Lungs: Chest Wall Normal, Clear to auscultation bilat Cardiovascular: Regular Rate/Rhythm Pulses: NL carotid, radial, femoral, DP, PT Abdomen: Non-tender, Non-distended, Normoactive bowel tones, Soft Extremities: No cyanosis/clubbing/edema bilat Neurological: Grossly Neurologically Intact, Normal Speech IVs and Medications Medications Reviewed: Medications were reviewed in detail Lab and Diagnostics Result Diagram: 11/24/1640 11/24/1640 X-Rays, CTs and MRIs Date of Service: 11/21/16621 PROCEDURE: X-RAY CHEST, TWO VIEWS ([id number]) IMPRESSION: Right greater than left interstitial prominence but seen over the mid and lower lungs, and it is unclear whether this would represent an acute process such as viral pneumonitis, or potentially a chronic fibrotic change in the lung parenchyma. Dictated by: Parvez Recinos M.D. on 11/21/2016 at 8:24 Approved by: Parvez Recinos M.D. on 11/21/2016 at 8:25 Date of Service: 11/21/16 1317 PROCEDURE: US VENOUS LEG DUPLEX BILATERAL IMPRESSION: No evidence for deep venous thrombosis is found in the left lower extremity with this duplex venous Doppler study. No evidence for deep venous thrombosis is found in the right lower extremity with this duplex venous Doppler study. Dictated by: Sam Sen M.D. on 11/22/2016 at 9:15 Approved by: Sam Sen M.D. on 11/22/2016 at 9:16 Additional Diagnostics Date of Service: 11/22/16 0857 PROCEDURE: NM LUNG VQ IMPRESSION: This is considered very low probability for embolus VQ scan. Dictated by: Sam Sen M.D. on 11/22/2016 at 14:42 Approved by: Sam Sen M.D. on 11/22/2016 at 14:47 Assessment & Plan 56 year female with hypertension, diabetes, possible CAD, hep C not treated, active smoker, chronic heroin abuse presents 2 days in to inpatient rehabilitation with complaint of acute chocking sensation and SOB. # Acute shortness of breath, present on admission. Resolved - unclear etiology. - PE unlikely with low probability VQ scan on 11/22 - ? if presenting symptoms partially cardiac in origin given mildly reduced EF and wall motion abnormality noted on Echo on 11/21 vs anxiety/panic attack - f/u pending stress test result from today # Acute on chronic anxiety. - ? if presenting symptoms partially due to anxiety - c/w supportive care - Klonopin 0.5mg po x 1 (pt reports this has been more effective than Ativan in the past) # History of opiate (heroin) abuse - denies recent use - c/w supportive care # History of Hep C, not active - further f/u as outpatient # History of tobacco use - nicotine patch # History of diabetes mellitus - lispro SS - f/u HgA1C # History hypertension. poorly controlled - c/w metoprolol started during this hospital - c/w home dose Clonidine - c/w home dose Losartan and titrate # Acute hypomagnesemia. - replete and f/u # History of alcohol abuse - denies recent use - f/u and treat with CIWA protocol if needed # Acute nausea, vomiting, diarrhea. resolved - ? etiology - ? if withdrawal vs viral gastroenteritis vs other. Dispo: likely back to rehab tomorrow pending result of stress tonight. VTE Prophylaxis: Sub-Q Enoxaparin VTE Mechanical Devices: Venous Foot Pump Time spent 35 minutes with more than half face to face and trying to reassure patient and explaining test results so far. Hemant Rothman Nov 24, 2016 16:01
--- NOTE | 2016-11-24 18:32 | DRSVH ---
PROCEDURE: 1 DAY PHARMACOLOGICAL STRESS TEST INDICATIONS: CHEST PAIN, rule out ACS COMPARISON: None. Radiopharmaceutical: Stress dose 26 mCi of technetium 99 tetrofosmin Rest dose 9.2 mCi of technetium 99 tetrofosmin. Indication for procedure: Patient is a 56-year-old woman with history of coronary disease diagnosed i n OR in the setting of multiple CAD risk factors hypertension, diabetes and smoking. Patient present s with atypical chest pain. FINDINGS: Pharmacologic stress test: Following informed consent Lexiscan was infused per protocol. Patient had no chest pain. Patient had dynamic but nonspecific [address] depressions in leads V4 V5 and V6. Raw data: Normal myocardial tracer uptake. Lung heart ratio is normal. Myocardial perfusion imaging: There is a medium sized moderate intensity reversible basal and mid inf erior perfusion defect. Perfusion defect is improved but not completely resolved by placing the patie nt in prone position. Therefore ischemia in the circumflex territory cannot be excluded. Quantitative gated SPECT: At peak stress ejection fraction is 46%. Rest ejection fraction is 45%. The re are focal wall motion abnormalities involving inferior and inferolateral segments. IMPRESSION: Abnormal intermediate risk pharmacologic stress test with myocardial perfusion imaging. Medium sized moderate intensity reversible inferior and inferolateral perfusion defect with correspon ding focal wall motion abnormality. Dynamic ST segment changes during pharmacologic stress test. Recommend cardiology consultation. No prior study available for comparison Dictated by: Giovanna Billings M.D. on 11/24/2016 at 18:24 Approved by: Giovanna Billings M.D. on 11/24/2016 at 18:30
[2016-11-24] MEDS: Insulin GLARgine 100 Unit/mL Syringe SUBQ SCH (20:17)
[2016-11-25] MEDS: LORazepam 2 mg Tablet PO PRN ×2 (04:53→08:14)
[2016-11-25 04:56] VITALS: BP 128/73; PULSE 65; RESP 18; O2SAT 95
--- NOTE | 2016-11-25 07:09 | NUR ---
Anxiety Patient awoke at 0430 c/o anxiety requested ativan. went in with ativan to assess patient. turn light on patient sleeping. yelled patients name x2. patient did not respond. breathing nonlabored. appears comfortable. light turned off. 15 minutes later patient out in hallway crying. asking to speak with charge nurse. patient medicated with 2mg ativan per other floor nurse. 30 minutes later patient observed sleeping. breathing nonlabored. Patient reports that she has not slept at all last night. will continue to monitor.
[2016-11-25] MEDS: Insulin LISPRO 300 Unit/3 mL Inj SUBQ SCH (08:00)
[2016-11-25 08:06] VITALS: PULSE 84; RESP 16; O2SAT 97
[2016-11-25] MEDS: Ketorolac 15 mg/mL Inj IVPUSH PRN (08:16)
--- NOTE | 2016-11-25 08:54 | NUR ---
Stool sample Positive: Patients stool sample came back positive for Noro Virus. Patient continues to be on contact enteric precautions. MD and infection control notified.
[2016-11-25 10:18] VITALS: PULSE 71
[2016-11-25 10:21] VITALS: BP 154/77; PULSE 65; RESP 20; O2SAT 97
--- NOTE | 2016-11-25 11:42 | NUR ---
Patient Left AMA: Patient left AMA at 1130. Patient was informed of the consequences of leaving against medical advic. That of which would be worsening of her condition and or . Patient decided to leave with all of the risk information explained. She refused to sign the AMA form. Allergist/Immunologist did consult with patient before she left and informed her of the importance of the treatment that she needed. MD was informed of patient leaving AMA and he spoke with her on her way out the door. Patients IV was discontinued intact. Patient was escorted to the hospital lobby by nurse. She was also provided warm dry clothing from the storage room at discharge. Patient stated that she planned to go to [facility] where she came from when she was hospitalized.
--- NOTE | 2016-11-25 13:29 | NUR ---
Social Work: Pt left AMA ADULT EDUCATION PROFESSIONAL notified that pt left AMA. ADULT EDUCATION PROFESSIONAL notified [facility] that pt left AMA. No further d/c planning needs at this time. Heavenly Garsia MSW
--- NOTE | 2016-11-25 14:27 | PCM.CHPCAR ---
Consult Subjective Date of service Nov 25, 2016 Date of admit Nov 21, 2016 at 09:41 Provider Requesting Consult Primary Care Physician Primary Care Provider: Other,Physician Chief Complaint SOB History of Present Illness Ms. betancur is a 56 year old female with PMH of long standing poly substance abuse including IV drug use, presented to [facility] ED secondary to SOB. Pt is currently undergoing a 60 day rehab treatment with last heroine use 10/21/2016. She states that this morning she became very short of breath " like my breath was caught in my throat" The rehab center reported recorded her O2 sat at 88%, EMS recorded it as 96%. Pt denied any CP during this event. She states that in May of 2016 she was admitted to [facility] in [place] for an MN in the setting of methamphetamine use but she left AMA before she could receive any imaging studies or medical management. PMH: HTN, DM - insulin dependant, HCV-untreated, tobacco dependance, polysubstance abuse, Previous MN 2015. Pt also reports history of anxiety, bipolar and depression PSH: D&C, tonsilectomy, cholcystectomy, 2 C-sec, bladder sling FH: Father - DMII, MN x 2, HTN SH: Pt states she is homeless and has been for the last 16 years. She lost her to a drug overdoes 9 years ago. She staets that she has been to group home 5 x and has been using drugs since age 16. She has tried rehabilitation in the past and is currently beginning a 60 day treatment course in [facility], recently moving traveling up from [facility] Review of Systems General: Reports: Fatigue No Chills No Fever Eyes: Reports: Double or blurred vision Problem/recent change in vision Ears, Nose, Mouth & Throat: Denies: Any hearing loss Respiratory: Reports: Cough Cough or wheezing Dyspnea Dyspnea at rest Productive cough Significant dyspnea Snoring and hypersomnolence Cardiovascular: Denies: Ascites Atrial Fibrillation Calf claudication Chest Discomfort Claudication Lightheadedness Lightheadedness or syncope Lower extremity edema Palpitations Presyncope Skipped beats Syncopal episodes Tachycardia Gastrointestinal: Reports: Abdominal discomfort Dyspepsia Nausea Vomiting Denies: Constipation Diarrhea Ulcers or GI blood loss Musculoskeletal: Reports: Chronic back pain Joint pain Joint stiffness Significant myalgias Neurological: Reports: Headaches Migraine headaches Denies: Any history of stroke/TIA symptoms Any recent focal neuro deficits Confusion Dizziness Memory deficit Numbness Paralysis Slurred speech Vertigo Weakness Psychiatric: Reports: Anxiety Anxious Any psychiatric problems Depressed Depression Stress PMH Bedside Blood Glucose: 222 Scheduled Clonidine (Clonidine) 0.2 Mg Tablet 0.2 MG PO BID (Reported) Gabapentin (Gabapentin) 600 Mg Tablet 600 MG PO BID (Reported) Insulin Glargine (Lantus U100 Insulin Vial) 100 Unit/Ml Vial 15 UNIT SUBQ MORNING (Reported) Insulin Glargine (Lantus U100 Insulin Vial) 100 Unit/Ml Vial 10 UNIT SUBQ HS ( Reported) Losartan Potassium (Losartan Potassium) 25 Mg Tablet 25 MG PO BID (Reported) Meloxicam (Meloxicam) 15 Mg Tablet 15 MG PO DAILY (Reported) Propranolol HCl (Propranolol HCl) 10 Mg Tablet 10 MG PO BID (Reported) Discontinued Medications Propranolol HCl (Propranolol HCl) 10 Mg Tablet 10 MG PO BID (Reported) Allergies: Coded Allergies: Penicillins (Verified Allergy, Unknown, 11/21/16) Sulfa (Sulfonamide Antibiotics) (Verified Allergy, Unknown, 11/21/16) iodine (Verified Allergy, Unknown, 11/21/16) Social History Hx Alcohol Use: NoHx Substance Use: Yes (last herion ) Smoking Status: Current Every Day Smoker Exam Vital Signs Vital Sign - Last Date Time Temp Pulse Resp B/P Pulse Ox O2 Delivery O2 Flow Rate FiO2 11/25/16 10:21 36.6 65 20 154/77 97 Room Air 11/22/16 04:56 2.00 Intake and Output 11/24/16 11/24/16 11/25/16 Cumulative From/Thru 15:00 23:00 07:00 11/21/16 06:28 - 11/25/16 06:09 Intake Total 1000 ml 1236 ml 8613 ml Output Total 1036 ml 2600 ml 99245 ml Balance -36 ml -1364 ml -6449 ml Intake Oral 1000 ml 1236 ml 7281 ml IV Total 1332 ml Output Urine Total 1036 ml 2600 ml 17061 ml Stool Total 1 ml # Bowel Movements 1 3 General: Anxious appearing Chronically ill appearing Skin: Clammy Head: Normocephalic Eye: EOMS intact PERRL Neck: No JVD No bruits No thyromegaly Ears, Nose & Throat: Ears no gross abnormalities Mouth no gross abnormalities Poor dentition Missing teeth Chest: Clear auscultation w/o rales/wheeze Cough Rales Cardiac: Regular rhythm with normal S1-S2 Abdomen: Soft, non-distended, non-tender Extremities: Warm w/o clubbing,cyanosis,edema No cyanosis Neurological: Alert & oriented Psychological: Memory grossly intact Oriented to time, place and person Tearful Depressed Anxious Agitated Questioning Additional Information Pt was very distraught at time of interview, stating that she wanted to leave and did not want to stay in the hospital. I thoroughly explained to the PT the importance of additional diagnostic testing of her heart with the possibility of stent placement. She acknowledged the importance of this but continued to reiterate her wish to leave the hospital. Lab and Diagnostics Result Diagram: 11/24/1653911/24/16539 X-Rays, CTs and MRIs X-RAY CHEST, TWO VIEWS IMPRESSION: Right greater than left interstitial prominence but seen over the mid and lower lungs, and it is unclear whether this would represent an acute process such as viral pneumonitis, or potentially a chronic fibrotic change in the lung parenchyma. Additional Diagnostics: Echocardiogram: Interpretation Summary Left ventricular systolic function is mildly reduced with the ejection fraction visually estimated to be 45-50% with borderline global hypokinesis and thinning and akinesis of the proximal half of the posterior and inferoposterior myrick. There are no other obvious focal wall motion abnormalities. A markedly increased E/A ratio is consistent with probable significantly elevated filling pressures. The right ventricle is normal in size and function. There is moderate pulmonary hypertension with the right ventricular systolic pressure estimated at 48 mmHg assuming a right atrial pressure of 8 mm Hg. The left atrium is severely dilated while right atrial size is normal. There is moderate mitral regurgitation and mild to moderate tricuspid regurgitation. US VENOUS LEG DUPLEX BILATERAL IMPRESSION: No evidence for deep venous thrombosis is found in the left lower extremity with this duplex venous Doppler study. No evidence for deep venous thrombosis is found in the right lower extremity with this duplex venous Doppler study. NM LUNG VQ IMPRESSION: This is considered very low probability for embolus VQ scan. 1 DAY PHARMACOLOGICAL STRESS TEST IMPRESSION: Abnormal intermediate risk pharmacologic stress test with myocardial perfusion imaging. Medium sized moderate intensity reversible inferior and inferolateral perfusion defect with corresponding focal wall motion abnormality. Dynamic ST segment changes during pharmacologic stress test. Recommend cardiology consultation. No prior study available for comparison Assessment & Plan Assessment 56 female with PMH of probable CAD, DMII, Anxiety, Polysubstance abuse and HTN, admitted to [facility] for SOB of unknown etiology. Cardiology consulted secondary to abnormal stress test and ECHO. Pt interviewed and examined and was explained the importance of obtaining additional diagnostic procedures but left AMA before they could be obtained. VTE Prophylaxis: Sub-Q Enoxaparin VTE Mechanical Devices: Intermittant Pneumatic CD Attending Statement Patient d/w resident. Agree with with plan, but she s/o AMA JP BARNHART DO Nov 25, 2016 10:49 Felix Moon MD Nov 25, 2016 15:05
--- NOTE | 2016-11-25 17:26 | PCM.DC.MED ---
Discharge Summary Date of Service Nov 25, 2016 Dates of Hospitalization Date of Hospital Admission Nov 21, 2016 at 09:41 Date of Discharge: Nov 25, 2016 Providers: Admitting Physician: Karen Caldwell MD Primary Care Physician: Other,Physician Attending Physician: Karen Caldwell MD Diagnosis at Time of Discharge Diagnosis at Time of Discharge # Patient left AMA # Possible acute NSTEMI # Possible CAD # Acute shortness of breath, present on admission. Resolved - unclear etiology. - PE unlikely with low probability VQ scan on 11/22 - ? if presenting symptoms partially cardiac in origin given mildly reduced EF and wall motion abnormality noted on Echo on 11/21 vs anxiety/panic attack # Acute on chronic anxiety. # History of opiate (heroin) abuse # History of Hep C, not active # History of tobacco use # History of diabetes mellitus # History hypertension. poorly controlled # Acute hypomagnesemia. # History of alcohol abuse # Acute nausea, vomiting, diarrhea due to acute Norovirus Consultations 1. Cardiology Procedures XRay, CTs & MRIs Date of Service: 11/21/16 0622 PROCEDURE: X-RAY CHEST, TWO VIEWS ([id number]) IMPRESSION: Right greater than left interstitial prominence but seen over the mid and lower lungs, and it is unclear whether this would represent an acute process such as viral pneumonitis, or potentially a chronic fibrotic change in the lung parenchyma. Dictated by: Parvez Recinos M.D. on 11/21/2016 at 8:24 Approved by: Parvez Recinos M.D. on 11/21/2016 at 8:25 Date of Service: 11/21/16 1317 PROCEDURE: US VENOUS LEG DUPLEX BILATERAL IMPRESSION: No evidence for deep venous thrombosis is found in the left lower extremity with this duplex venous Doppler study. No evidence for deep venous thrombosis is found in the right lower extremity with this duplex venous Doppler study. Dictated by: Sam Sen M.D. on 11/22/2016 at 9:15 Approved by: Sam Sen M.D. on 11/22/2016 at 9:16 Cardiac Echo Impression Date of Service: 11/21/16 9580 Echocardiogram Report Interpretation Summary Left ventricular systolic function is mildly reduced with the ejection fraction visually estimated to be 45-50% with borderline global hypokinesis and thinning and akinesis of the proximal half of the posterior and inferoposterior myrick. There are no other obvious focal wall motion abnormalities. A markedly increased E/A ratio is consistent with probable significantly elevated filling pressures. The right ventricle is normal in size and function. There is moderate pulmonary hypertension with the right ventricular systolic pressure estimated at 48 mmHg assuming a right atrial pressure of 8 mm Hg. The left atrium is severely dilated while right atrial size is normal. There is moderate mitral regurgitation and mild to moderate tricuspid regurgitation. Reading Physician:03:49 PM Other Diagnostics Date of Service: 11/22/16 0857 PROCEDURE: NM LUNG VQ IMPRESSION: This is considered very low probability for embolus VQ scan. Dictated by: Sam Sen M.D. on 11/22/2016 at 14:42 Approved by: Sam Sen M.D. on 11/22/2016 at 14:47 Date of Service: 11/24/16 0804 PROCEDURE: 1 DAY PHARMACOLOGICAL STRESS TEST INDICATIONS: CHEST PAIN, rule out ACS COMPARISON: None. Radiopharmaceutical: Stress dose 26 mCi of technetium 99 tetrofosmin Rest dose 9.2 mCi of technetium 99 tetrofosmin. Indication for procedure: Patient is a 56-year-old woman with history of coronary disease diagnosed in OR in the setting of multiple CAD risk factors hypertension, diabetes and smoking. Patient presents with atypical chest pain. FINDINGS: Pharmacologic stress test: Following informed consent Lexiscan was infused per protocol. Patient had no chest pain. Patient had dynamic but nonspecific [address] depressions in leads V4 V5 and V6. Raw data: Normal myocardial tracer uptake. Lung heart ratio is normal. Myocardial perfusion imaging: There is a medium sized moderate intensity reversible basal and mid inferior perfusion defect. Perfusion defect is improved but not completely resolved by placing the patient in prone position. Therefore ischemia in the circumflex territory cannot be excluded. Quantitative gated SPECT: At peak stress ejection fraction is 46%. Rest ejection fraction is 45%. There are focal wall motion abnormalities involving inferior and inferolateral segments. IMPRESSION: Abnormal intermediate risk pharmacologic stress test with myocardial perfusion imaging. Medium sized moderate intensity reversible inferior and inferolateral perfusion defect with corresponding focal wall motion abnormality. Dynamic ST segment changes during pharmacologic stress test. Recommend cardiology consultation. No prior study available for comparison Dictated by: Giovanna Billings M.D. on 11/24/2016 at 18:24 Approved by: Giovanna Billings M.D. on 11/24/2016 at 18:30 Brief History As noted in H&P by Dr. Caldwell: Ms. betancur is a 56 year old female with PMH of long standing poly substance abuse including IV drug use, presented to [facility] ED secondary to SOB. Pt is currently undergoing a 60 day rehab treatment with last heroine use 10/21/2016. She states that this morning she became very short of breath " like my breath was caught in my throat" The rehab center reported recorded her O2 sat at 88%, EMS recorded it as 96%. Pt denied any CP during this event. She states that in May of 2016 she was admitted to [facility] in [place] for an ND in the setting of methamphetamine use but she left AMA before she could receive any imaging studies or medical management. Hospital Course # Acute shortness of breath, present on admission. Resolved - unclear etiology. - PE unlikely with low probability VQ scan on 11/22 - ? if presenting symptoms partially cardiac in origin given mildly reduced EF and wall motion abnormality noted on Echo on 11/21 vs anxiety/panic attack - stress test was positive. - cardiology consulted on 11/25/16 but patient left AMA before cardiac cath # Acute on chronic anxiety. - ? if presenting symptoms partially due to anxiety - pt was given both Ativan and Klonopin and offered psych consult but abruptly left AMA on 11/25/16 # History of opiate (heroin) abuse - denies recent use # History of Hep C, not active - further f/u as outpatient # History of tobacco use - nicotine patch was given # History of diabetes mellitus - lispro SS # History hypertension. poorly controlled - c/w metoprolol started during this hospital - c/w home dose Clonidine - c/w home dose Losartan # Acute hypomagnesemia. - replete and f/u # History of alcohol abuse - denies recent use # Acute nausea, vomiting, diarrhea. resolved - norovirus positive Exam Vital Signs (Last) Date Time Temp Pulse Resp B/P Pulse Ox O2 Delivery O2 Flow Rate FiO2 11/25/16 10:21 36.6 65 20 154/77 97 Room Air 11/22/16 04:56 2.00 Test 11/21/16 06:45 11/21/16 08:57 11/21/16 11:20 11/21/16 13:24 D-Dimer 0.8mg/L (<0.50) Urine Color Straw (YELLOW) Urine Appearance Clear (CLEAR,HAZY) Urine pH 6.5 (5.0-8.0) Urine Specific [place] 1.010 (1.003-1.035) Urine Protein Negativemg/dL (NEG,TRACE) Urine Glucose (UA) Negativemg/dL (NEGATIVE) Urine Ketones Negativemg/dL (NEGATIVE) Urine Occult Blood Negative (NEGATIVE) Urine Nitrite Negative (NEGATIVE) Urine Bilirubin Negative (NEGATIVE) Urine Urobilinogen Normalmg/dL (NORMAL) Urine Leukocyte Esterase Negative (NEGATIVE) Urine RBC 0-2/hpf (0-2) Urine WBC 0-5/hpf (0-5) Urine Epithelial Cells Moderate/hpf (NONE-MOD) Urine Crystals None seen (NONE SEEN) Urine Bacteria None/hpf (NONE-FEW) Urine Hyaline Casts None/lpf (NONE) Urine Granular Casts None seen (NONE SEEN) Urine Waxy Casts None seen (NONE SEEN) Urine Red Blood Cell Casts None seen (NONE SEEN) Urine White Blood Cell Casts None seen (NONE SEEN) Urine Mucus None seen (None Seen) Urine Trichomonas None seen (NONE SEEN) Urine Yeast None (NONE SEEN) Urine Culture Reflexed Not indicated Hold Urine Received (Received) Total Creatine Kinase 70U/L (21-215) Creatine Kinase MB 3.0ng/mL (0.0-5.3) Creatine Kinase MB % % (0.0-5.0) Urine Opiates Screen Negative Urine Methadone Screen Negative Urine Barbiturates Screen Negative Urine Amphetamines Screen Negative Urine Benzodiazepines Screen Negative Urine Cocaine Metabolite Screen Negative Urine Cannabinoids Screen Positive Test 11/21/16 18:35 11/22/16 03:05 11/22/16 14:50 11/23/16 05:20 Troponin T < 0.010ug/L (0.0-0.011) Hemoglobin A1c 7.9% (4.8-5.6) Triglycerides Level 308mg/dL (0-149) Cholesterol Level 164mg/dL (100-199) LDL Cholesterol, Calculated 50.400mg/dL (0-99) VLDL Cholesterol 61.600mg/dL HDL Cholesterol 52mg/dL (>39) Cholesterol/HDL Ratio 3.15 (0.0-4.4) Activated Partial Thromboplast Time 48.3sec (22.8-33.0) Neutrophils (%) (Auto) 82.8% (40-74) Lymphocytes (%) (Auto) 8.3% (14-46) Monocytes (%) (Auto) 5.3% (4-12) Eosinophils (%) (Auto) 3.0% (0-5) Basophils (%) (Auto) 0.3% (0-3) Phosphorus Level 2.0mg/dL (2.5-4.9) Total Bilirubin 0.5mg/dL (0.0-1.2) Aspartate Amino Transf (AST/SGOT) 20U/L (0-50) Alanine Aminotransferase (ALT/SGPT) 14U/L (0-32) Alkaline Phosphatase 82U/L (25-150) Total Protein 7.1g/dL (6.4-8.4) Albumin 4.1g/dL (3.4-5.0) Test 11/24/16 05:40 White Blood Count 2.8th/mm3 (3.8-10.1) Red Blood Count 4.42mil/mm3 (3.90-5.20) Hemoglobin 13.6g/dL (12.0-15.6) Hematocrit 39.9% (35.0-46.0) Mean Corpuscular Volume 90.3fL (81-100) Mean Corpuscular Hemoglobin 30.8pg (27.0-35.0) Mean Corpuscular Hemoglobin Concent 34.1% (32.0-37.0) Red Cell Distribution Width 13.9% (12.3-15.4) Platelet Count 153bil/L (150-400) Sodium Level 136mEq/L (134-144) Potassium Level 4.5mEq/L (3.5-5.2) Chloride Level 100mEq/L (97-108) Carbon Dioxide Level 23mmol/L (18-29) Blood Urea Nitrogen 13mg/dL (6-24) Creatinine 0.52mg/dL (0.57-1.00) Estimat Glomerular Filtration Rate 176mL/min (>59) Glucose Level 173mg/dL (60-99) Calcium Level 8.4mg/dL (8.5-10.1) Magnesium Level 2.0mg/dL (1.6-2.6) Pro-B-Type Natriuretic Peptide 844.4pg/mL (0-249) Thyroid Stimulating Hormone (TSH) 1.850uIU/mL (0.450-4.500) Discharge Medications Discharge Medications Clonidine (Clonidine) 0.2 Mg Tablet 0.2 MG PO BID (Reported) Gabapentin (Gabapentin) 600 Mg Tablet 600 MG PO BID (Reported) Insulin Glargine (Lantus U100 Insulin Vial) 100 Unit/Ml Vial 15 UNIT SUBQ MORNING (Reported) Insulin Glargine (Lantus U100 Insulin Vial) 100 Unit/Ml Vial 10 UNIT SUBQ HS ( Reported) Losartan Potassium (Losartan Potassium) 25 Mg Tablet 25 MG PO BID (Reported) Meloxicam (Meloxicam) 15 Mg Tablet 15 MG PO DAILY (Reported) Propranolol HCl (Propranolol HCl) 10 Mg Tablet 10 MG PO BID (Reported) Followup Plan Disposition: patient left AMA Time spent 40 min Hemant Rothman Nov 25, 2016 17:26
--- NOTE | 2016-12-08 13:06 | PCM.PNMED ---
Subjective Date of Service Nov 22, 2016 Subjective Patient had episodes of chest pain, hypoxia 84-86%on RA around 6pm, no EKG chg, repeat trop negative pain subsided with nitro, ativan. pt thinks this was her panic attack. Spo2 remained well with 2liter NC>96% no more episode at night this AM, pt was still anxious, asking for ativan, clonidine Of note pt refused instructions including medicines, diet, etc, didn't receive Lovenox earlier yesterday Given the episode, heparin gtt started, kept NPO today. Exam Vital Signs Vital Sign - Last Date Time Temp Pulse Resp B/P Pulse Ox O2 Delivery O2 Flow Rate FiO2 11/22/16 09:06 73 11/22/16 08:22 20 98 Room Air 11/22/16 04:56 36.7 138/88 2.00 Intake and Output 11/21/16 11/21/16 11/22/16 Cumulative From/Thru 15:00 23:00 07:00 11/21/16 06:28 - 11/22/16 06:19 Intake Total 709 ml 677 ml 1386 ml Output Total 1850 ml 3350 ml 5200 ml Balance -1141 ml -2673 ml -3814 ml Intake Oral 709 ml 600 ml 1309 ml IV Total 77 ml 77 ml Output Urine Total 1850 ml 3350 ml 5200 ml Exam milddle aged female, pleasant, multiple areas of s/p IM muscle drug use, healed wounds, on Lt upper arms, R groin, R flank. no ulcers. NAD, comfortable, MMM RRR, nl s1 s2 no mrg CTAB no w,c S,ND,NT,BS+ warm, no edema IVs and Medications Medications Reviewed: Medications were reviewed in detail Lab and Diagnostics Result Diagram: 11/22/1630411/22/16304 Assessment & Plan 56 year female with hypertension, diabetes, hep C not treated, active smoker, chronic hearing abuse currently on inpatient rehabilitation day p/w chocking sensation this AM. acute, active Episode of hypoxia, SOB, chocking sensation, anxiety, POA, ddx:PE based on d- dimer+, hx, cannot exclude NSTEMI based EKG chg although seemed like LVH with strain pattern, TTE-focal wall motion defect, trop+, risks-smoking. dvt study negative - continue asa, BB/statin -continue heparin gtt, -plan to VQ scan today, if negative, then possible stress test tomorrow or outpatient. troponemia, POA, this seemed more likely demand ischemia, trended down. Non-compliance, POA, likely personally disorder, baseline anxiety d/o, high risks of AMA. ?anxiety, probable panic attack, POA, will try with ativan prn, clonidine home dose. chronic, stable heroin abuse, utox negative, monitor for WD, denied current use hep C, not active active smoker, start nicotine patch DM, lispro SS HTN, will resume home meds once med recs done. dispo: within 1-2more days diet: DASH/DM dvt ppx: systemic AC Full Code Time spent 35min Karen Caldwell MD Nov 22, 2016 10:24
== END 2016-11-25 11:25 | disposition left against medical advice (07) | DRG 190 ==
LOC: SED 06:15 → EDBD 06:15 → MPC 09:41 → OBSVTOIN 09:41
PROVIDERS: ADMIT Internal Medicine; ATTEND Internal Medicine
DX: I21.4 Non-ST elevation (NSTEMI) myocardial infarction (principal); A08.11 Acute gastroenteropathy due to Norwalk agent; E11.9 Type 2 diabetes mellitus without complications; F17.210 Nicotine dependence, cigarettes, uncomplicated; I10 Essential (primary) hypertension; Z79.4 Long term (current) use of insulin; F41.9 Anxiety disorder, unspecified; I25.10 Atherosclerotic heart disease of native coronary artery without angina pectoris